=== PATIENT | female | born 1945 | race Caucasian/White ===

== ENCOUNTER 2017-03-21 10:02 | Emergency (ER) | payer MEDICARE ==
[~2017-03-21] VITALS: Ht 160 cm; Wt 70.3 kg
[~2017-03-21 10:02] MED LIST: BUPROPION HCL150 M2 PO; FLUOXETINE HCL20 MG PO; OXYCODONE HCL5 MG PO
[2017-03-21] MEDS ORDERED: METOPROLOL TART25 MG PO (10:16)
[2017-03-21] MEDS ORDERED: ATORVASTATIN CA20 MG PO (10:16)
[2017-03-21] MEDS ORDERED: LISINOPRIL5 MG PO (10:16)
[2017-03-21] MEDS ORDERED: CLOPIDOGREL75 MG PO (10:16)
[2017-03-21] MEDS ORDERED: ASPIRIN EC81 MG PO (10:16)
== END 2017-03-21 11:38 | disposition home or self-care (01) ==
LOC: ED 10:02
DX: S30.1XXA Contusion of abdominal wall, initial encounter (principal); I25.2 Old myocardial infarction; Z90.710 Acquired absence of both cervix and uterus; Z79.899 Other long term (current) drug therapy; Z79.82 Long term (current) use of aspirin; W01.0XXA Fall on same level from slipping, tripping and stumbling without subsequent striking against object, initial encounter
CPT/HCPCS: 71020; 81001; 85025; 99283

== ENCOUNTER 2019-01-06 06:30 | Day surgery (SDC) | payer MEDICARE ==
[~2019-01-06] VITALS: Ht 160 cm; Wt 74.8 kg
[~2019-01-06 06:30] MED LIST changes: +ASPIRIN EC81 MG PO; +ATORVASTATIN CA20 MG PO; +CLOPIDOGREL75 MG PO; +LISINOPRIL5 MG PO; +METOPROLOL TART25 MG PO
--- NOTE | 2019-01-06 08:14 | NUR ---
01/06/19 0814 Brittany Brar 0806- PT ARRIVES TO PACU. AROUSABLE TO STIMULI, FALLS INSTANTLY BACK TO SLEEP WHEN NOT BEING TALKED TO. RESP EVEN AND UNLABORED. OXYGEN SAT HIGH 90'S TO 100% ON 2L VIA NC. 0814- OXYGEN TITRATED OFF.
--- NOTE | 2019-01-06 09:30 | OR ---
[facility] [address] [place], [place] [address] Signed DATE OF OPERATION: 01/06/2019 SURGEON: Monika Almodovar MD PREOPERATIVE DIAGNOSES: 1. Personal history of colonic polyps, 2009. 2. Internal anal skin tags and hemorrhoids. 3. Fecal soilage. POSTOPERATIVE DIAGNOSES: 1. 4 mm polyps at 4 cm and 7 cm. 2. 6 mm polyp at 55 cm. 3. Dphnabr-ke-lvhacmam sigmoid diverticulosis with angulation. 4. Minimal internal hemorrhoids with associated skin tags. PROCEDURE: Colonoscopy with hot biopsy. ESTIMATED BLOOD LOSS: None. INDICATIONS: Heidi is a 73-year-old female, who came in 2009 and had multiple hyperplastic serrated adenomatous and adenomas polyps removed throughout the colon and rectum. She is known to have some minimal internal anal skin tags with small internal hemorrhoids. There is no family history of colon cancer or polyps. She came back in 2010 and there were no additional polyps noted. We were hoping to get her back in 2015, but she has been taking care of her aging mother. She returns now for her followup colonoscopy. Her mother remains alive at age 95. In the meantime, Heidi had been placed on Plavix and aspirin for her cardiac stents about five years ago. Consequently had her hold that today. She also has scoliosis and some arthritis in her back. There is some question of fecal soilage and/or leakage. In the office, I gave her a pamphlet on colonoscopy. We looked at that together along with the risks including, but not limited to gas, bloating, crampy abdominal pain, bleeding, perforation requiring surgery, and missed diagnosis. We also discussed the need for IV conscious sedation. She has done well with Versed and fentanyl in the past. She had expressed understanding and wished to proceed. PROCEDURE NOTE: Heidi was taken into our endoscopy suite and placed in the left lateral decubitus Electronically Signed By: MONIKA ALMODOVAR MD 01/06/19 0531 PATIENT NAME: HEIDI VALVERDE OCTOBER OPERATIVE REPORT DATE OF : 49 REPORT #: [id number] PHYSICIAN: MONIKA ALMODOVAR MD PCP: MASSIEL DUNNE PA-C REPORT IS CONFIDENTIAL AND NOT TO BE RELEASED WITHOUT AUTHORIZATION [facility] [address] [place], [place] [address] Signed position. She was given a total of 7 mg of Versed and 150 mcg of fentanyl to cover the case. A digital rectal exam was performed and she seemed to have appropriate anal sphincter tone. Really, no external hemorrhoids. The adult colonoscope was introduced and advanced under direct visualization of camera. She has a somewhat narrow, tortuous, angulated sigmoid colon. It took extra Versed and fentanyl to get through this area. The scope continued to drag in the sigmoid colon as the scope was advanced to the cecum and it dragged as we were pulling the colonoscope out. Consequently, if Heidi has recall of the procedure, she might need propofol in the future. Her prep was actually quite good. We could easily see the appendiceal orifice, the craig's foot and the ileocecal valve. We took pictures throughout for photodocumentation. The above-mentioned polyps were easily removed with the help of hot biopsy forceps. The polyp at 55 cm actually is closer to 25 cm as we withdrew the scope. Again, she has nfhazck-gj-nxsqcmjz left and sigmoid diverticulosis. They were pfczwhv-jm-guqvjbpq in size, qkzmpdj-bb-vauidzgx in number, and scattered about. She has narrowing and significant angulation in the sigmoid colon. It had taken extra time to get through that area. Once in the rectum, the scope had been retroflexion. Again, she has minimal internal hemorrhoids with associated skin tags. After this, the gas was suctioned out and colonoscope removed. Overall, Heidi tolerated the procedure quite well. RECOMMENDATIONS: I will see Heidi back in my office in 7 to 14 days to review her results. If she has a recall of the procedure, she will need propofol in the future. Monika Almodovar MD ALB/MODL /[id number] cc: MD Massiel Joiner PA-C Copies: MONIKA ALMODOVAR MD Electronically Signed By: MONIKA ALMODOVAR MD 01/06/19 0930 PATIENT NAME: HEIDI VALVERDE OCTOBER OPERATIVE REPORT DATE OF : 49 REPORT #: [id number] PHYSICIAN: MONIKA ALMODOVAR MD PCP: MASSIEL DUNNE PA-C REPORT IS CONFIDENTIAL AND NOT TO BE RELEASED WITHOUT AUTHORIZATION [address] [address] Signed MASSIEL DUNNE PA-C ~ Electronically Signed By: MONIKA ALMODOVAR MD 01/06/19 0930 PATIENT NAME: HEIDI VALVERDE JAMEL OPERATIVE REPORT DATE OF : 49 REPORT #: [id number] PHYSICIAN: MONIKA ALMODOVAR MD PCP: MASSIEL DUNNE PA-C REPORT IS CONFIDENTIAL AND NOT TO BE RELEASED WITHOUT AUTHORIZATION
== END 2019-01-06 09:06 | disposition home or self-care (01) ==
LOC: DS 06:30 → OPS 06:30 → DS 06:45 → OPS 06:45
PROVIDERS: Colon & Rectal Surgery
PROC: 0DBE8ZX Excision of Large Intestine, Via Natural or Artificial Opening Endoscopic, Diagnostic (ICD-10-PCS; principal; 2019-01-06 06:45)
DX: D12.6 Benign neoplasm of colon, unspecified (principal); K63.5 Polyp of colon; K64.8 Other hemorrhoids; K64.4 Residual hemorrhoidal skin tags; K57.30 Diverticulosis of large intestine without perforation or abscess without bleeding; Z86.010 Personal history of colon polyps; Z88.5 Allergy status to narcotic agent; Z79.82 Long term (current) use of aspirin; Z79.899 Other long term (current) drug therapy; Z79.02 Long term (current) use of antithrombotics/antiplatelets
CPT/HCPCS: 99153; G0500; J2250; J3010; J7120